=== PATIENT | male | born 1955 | race Hispanic/Latino ===

== ENCOUNTER → 2019-01-07 | Outpatient (CLI) | payer OTHER, MEDICARE ==
[~2019-01-07] MED LIST: ASPI-1197 PO
== END | disposition home or self-care (01) ==
LOC: RAH 13:25
PROVIDERS: ATTEND Internal Medicine Cardiovascular Disease
DX: I10 Essential (primary) hypertension (principal); I25.10 Atherosclerotic heart disease of native coronary artery without angina pectoris
CPT/HCPCS: 93922

== ENCOUNTER 2022-12-24 06:38 | Day surgery (SDC) | payer OTHER, MEDICARE ==
[2022-12-19 15:10] LABS: BASOPHILS % (AUTO) 0.6 % (0.0-5.0); EOSINOPHILS % (AUTO) 1.3 % (0.0-8.0); HEMATOCRIT 41.6 % (42-54); LYMPHOCYTES % (AUTO) 33.5 % (21.0-51.0); MEAN CORPUSCULAR HEMOGLOBIN 30.4 pg (27.0-33.0); MEAN CORPUSCULAR HGB CONC 32.7 g/dL (32.0-36.0); MEAN CORPUSCULAR VOLUME 92.9 fL (79-99); NEUTROPHILS % (AUTO) 54.4 % (40.0-77.0); PLATELET COUNT (AUTO) 215 K/uL (130-400); RED BLOOD CELL COUNT(AUTO) 4.48 MIL/uL (4.50-6.20); WHITE BLOOD COUNT (AUTO) 6.2 K/uL (4.8-10.8)
[2022-12-19 15:15] VITALS: BP 123/65
[2022-12-19 15:27] LABS: CREATININE 0.7 mg/dL (0.5-1.5); POTASSIUM 4.2 mmol/L (3.5-5.1)
[2022-12-19 15:29] LABS: INR 0.98 (0.85-1.15); PROTHROMBIN TIME 11.4 SEC (9.6-11.6)
[2022-12-19 15:30] LABS: PARTIAL THROMBOPLASTIN TIME 27.6 SEC (26.3-35.5)
[~2022-12-24] VITALS: Ht 180.3 cm; Wt 74.9 kg
[~2022-12-24 06:38] MED LIST changes: +0.9%NACL 1000ML 1,000 ML IV SCH
[2022-12-24 07:30] VITALS: BP 162/63
[2022-12-24 09:30] VITALS: BP 142/70
[2022-12-24] MEDS ORDERED: PRAV20TA4 PO (09:50)
[2022-12-24] MEDS ORDERED: CARB1TAB42 PO (09:51)
[2022-12-24] MEDS ORDERED: EMPA25TA PO (09:52)
[2022-12-24] MEDS ORDERED: LISI2.5T13 PO (09:52)
[2022-12-24] MEDS ORDERED: APIX5TAB PO (09:53)
[2022-12-24] MEDS ORDERED: PIOG15TA66 PO (09:53)
[2022-12-24] MEDS ORDERED: GLIP10TA19 PO (09:53)
[2022-12-24] MEDS ORDERED: CARV6.25 PO (09:54)
[2022-12-24] MEDS ORDERED: PROP40TA7 PO (10:00)
== END 2022-12-24 10:20 | disposition home or self-care (01) ==
LOC: DAH 06:38
PROVIDERS: ATTEND Internal Medicine Cardiovascular Disease
DX: Z45.09 Encounter for adjustment and management of other cardiac device (principal); R00.2 Palpitations; G20 Parkinson's disease; I10 Essential (primary) hypertension; E11.59 Type 2 diabetes mellitus with other circulatory complications; E55.9 Vitamin D deficiency, unspecified; E78.5 Hyperlipidemia, unspecified; Z98.890 Other specified postprocedural states; Z83.3 Family history of diabetes mellitus; Z80.9 Family history of malignant neoplasm, unspecified; Z79.01 Long term (current) use of anticoagulants; Z79.899 Other long term (current) drug therapy
CPT/HCPCS: 80048; 85025; 85610; 85730; 36415; 93005; 33286; 82948; J7030; A4222; A4221; A4663; A4216; A4606; A4223 ×3